=== PATIENT | male | born 1960 | race African-American/Black ===

== ENCOUNTER 2021-03-17 23:24 | Inpatient (IN) | payer MEDICAID ==
[~2021-03-17] VITALS: Ht 170.2 cm; Wt 72.6 kg
[2021-03-17] MEDS ORDERED: NITROGLYCERIN OINT 1GM/INCH UDPKT TD ONE (23:45)
[2021-03-17] MEDS ORDERED: ASPIRIN 81MG TABLET PO ONE (23:45)
[2021-03-18 00:23] LABS: BASOPHILS % 1.1 % (0.0-2.0); EOSINOPHILS % 2.7 % (0.0-5.0); HEMATOCRIT. 40.2 % (42.0-52.0); HEMOGLOBIN. 13.9 g/dL (14.0-18.0); LYMPHOCYTES % 43.7 % (20.0-50.0); MEAN CORPUSCULAR HEMOGLOBIN 29.8 pg (28.0-32.0); MEAN CORPUSCULAR VOLUME 86.2 fL (80.0-94.0); MONOCYTES % 8.6 % (2.0-8.0); NEUTROPHILS % 43.9 % (40.0-76.0); PLATELET 280 x1000/uL (130-400); RED BLOOD CELL COUNT 4.67 mill/uL (4.7-6.1); RED CELL DISTRIBUTION WIDTH 16.7 % (11.6-14.6)
[2021-03-18 00:28] LABS: CHLORIDE 109 mEq/L (98-107)
[2021-03-18] MEDS ORDERED: ENALAPRIL 2.5MG/2ML VIAL 2ML IV ONE (00:30)
[2021-03-18] MEDS ORDERED: ENALAPRIL 1.25MG/ML VIAL 1ML IV NR (00:45)
[2021-03-18] MEDS ORDERED: IOHEXOL-350 100 ML BOTTLE ONE (02:55)
[2021-03-18 11:00] VITALS: BP 174/115
[2021-03-18 12:00] VITALS: BP 174/114
[2021-03-18] MEDS ORDERED: LORAZEPAM 0.5MG TABLET PO PRN (15:30)
[2021-03-18] MEDS ORDERED: ONDANSETRON HCL 4MG/2ML INJ IV PRN (15:30)
[2021-03-18] MEDS ORDERED: HYDROCODONE/ACETAMINOPHEN 5/325MG TABLET PO PRN (15:30)
[2021-03-18] MEDS ORDERED: ACETAMINOPHEN 325MG TABLET PO PRN ×2 (15:30)
[2021-03-18] MEDS ORDERED: DOCUSATE SODIUM 100MG CAPSULE PO PRN (15:30)
[2021-03-18] MEDS ORDERED: IPRATROPIUM/ALBUTEROL 0.5-3(2.5)MG/3ML NEB HHN PRN (15:30)
[2021-03-18 16:00] VITALS: BP 212/123
[2021-03-18] MEDS ORDERED: NALOXONE HCL 0.4MG/ML VIAL IV PRN (16:15)
[2021-03-18] MEDS ORDERED: CARVEDILOL 6.25 MG TABLET PO SCH (17:00)
[2021-03-18] MEDS: CARVEDILOL 6.25 MG TABLET PO SCH (17:24)
[2021-03-18] MEDS: AMLODIPINE 5MG TABLET PO SCH (17:25)
[2021-03-18 18:26] LABS: BASOPHILS % 1.1 % (0.0-2.0); EOSINOPHILS % 1.9 % (0.0-5.0); HEMATOCRIT. 42.5 % (42.0-52.0); LYMPHOCYTES % 27.1 % (20.0-50.0); MEAN CORPUSCULAR HEMOGLOBIN 29.2 pg (28.0-32.0); MEAN PLATELET VOLUME 7.2 fl (7.4-10.4); MONOCYTES % 8.7 % (2.0-8.0); NEUTROPHILS % 61.2 % (40.0-76.0); PLATELET 266 x1000/uL (130-400); RED BLOOD CELL COUNT 4.78 mill/uL (4.7-6.1); RED CELL DISTRIBUTION WIDTH 16.5 % (11.6-14.6)
[2021-03-18 20:00] VITALS: BP 187/129
[2021-03-18 20:13] LABS: HEPATITIS B SURFACE ANTIGEN NEGATIVE
[2021-03-18 20:43] LABS: HEPATITIS A AB IGM NEGATIVE (NEGATIVE)
[2021-03-18] MEDS: CLONIDINE 0.1MG TABLET PO PRN (20:54)
[2021-03-18] MEDS: CHLORDIAZEPOXIDE 5 MG CAPSULE PO SCH (21:44)
[2021-03-19] VITALS: BP 163/109
[2021-03-19 04:00] VITALS: BP 197/108
[2021-03-19] MEDS: CHLORDIAZEPOXIDE 5 MG CAPSULE PO SCH (06:12)
[2021-03-19] MEDS: CLONIDINE 0.1MG TABLET PO PRN ×2 (06:12→09:07)
[2021-03-19 08:00] VITALS: BP 174/113
[2021-03-19] MEDS: CARVEDILOL 6.25 MG TABLET PO SCH (09:06)
[2021-03-19] MEDS: AMLODIPINE 5MG TABLET PO SCH (09:07)
[2021-03-19 12:00] VITALS: BP 129/89
[2021-03-19 13:30] VITALS: BP 132/88
== END 2021-03-19 17:17 | disposition left against medical advice (07) | DRG 190 ==
LOC: ER 23:24 → MICUSO 03-18 04:43 → EDBEDREQTM 03-18 04:45 → EDBEDREQ 03-18 04:45 → 6WST 03-18 08:46
PROVIDERS: ADMIT Internal Medicine; ATTEND Internal Medicine
DX: I21.4 Non-ST elevation (NSTEMI) myocardial infarction (principal); N17.0 Acute kidney failure with tubular necrosis; E87.8 Other disorders of electrolyte and fluid balance, not elsewhere classified; K76.0 Fatty (change of) liver, not elsewhere classified; E88.09 Other disorders of plasma-protein metabolism, not elsewhere classified; I16.1 Hypertensive emergency; F10.239 Alcohol dependence with withdrawal, unspecified; I12.9 Hypertensive chronic kidney disease with stage 1 through stage 4 chronic kidney disease, or unspecified chronic kidney disease; N18.9 Chronic kidney disease, unspecified; Z60.2 Problems related to living alone; R91.8 Other nonspecific abnormal finding of lung field; Z82.49 Family history of ischemic heart disease and other diseases of the circulatory system; Z87.891 Personal history of nicotine dependence; Z79.899 Other long term (current) drug therapy
CPT/HCPCS: 36415; 71045; 71275; 80048; 80053; 80061; 80320; 83036; 83880; 84443; 84484; 85025; 85379; 86705; 86709; 86803; 87340; 87426; 93005; 99291; J2405; J3490; Q9967; G0480

== ENCOUNTER 2022-05-14 14:34 | Emergency (ER) | payer MEDICAID, OTHER ==
[~2022-05-14] VITALS: Ht 177.8 cm; Wt 100.0 kg
[2022-05-14] MEDS ORDERED: SODIUM CHLORIDE 0.9% 1,000 ML IV ONE (15:30)
[2022-05-14] MEDS ORDERED: LORAZEPAM 2MG/ML CPJ IV ONE (15:30)
[2022-05-14 16:25] LABS: BASOPHILS % 0.9 % (0.0-2.0); EOSINOPHILS % 0.6 % (0.0-5.0); HEMATOCRIT. 39.4 % (42.0-52.0); HEMOGLOBIN. 13.3 g/dL (14.0-18.0); LYMPHOCYTES % 11.9 % (20.0-50.0); MEAN CORPUSCULAR HEMOGLOBIN 32.9 pg (28.0-32.0); MEAN CORPUSCULAR VOLUME 97.6 fL (80.0-94.0); MEAN PLATELET VOLUME 7.1 fl (7.4-10.4); MONOCYTES % 4.8 % (2.0-8.0); NEUTROPHILS % 81.8 % (40.0-76.0); PLATELET 411 x1000/uL (130-400); RED BLOOD CELL COUNT 4.04 mill/uL (4.7-6.1); RED CELL DISTRIBUTION WIDTH 15.5 % (11.6-14.6)
[2022-05-14 16:28] LABS: CLARITY URINE CLEAR (CLEAR); COLOR URINE YELLOW (YELLOW); KETONES URINE NEGATIVE (NEGATIVE); LEUKOCYTE ESTERASE URINE NEGATIVE (NEGATIVE); NITRITE URINE NEGATIVE (NEGATIVE); OCCULT BLOOD URINE TRACE (NEGATIVE); PROTEIN URINE 3+ (NEGATIVE); SPECIFIC GRAVITY URINE 1.013 (1.005-1.030); UROBILINOGEN URINE 0.2 E.U./dL (0.2-1.0)
[2022-05-14 16:28] LABS: CHLORIDE 102 mEq/L (98-107)
[2022-05-14 16:37] LABS: ETHANOL BLOOD < 10 mg/dL
[2022-05-14 16:41] LABS: *AMPHETAMINES SCREEN URINE NEGATIVE (NEGATIVE); *BARBITURATES SCREEN URINE NEGATIVE (NEGATIVE); *BENZODIAZEPINES SCREEN URINE NEGATIVE (NEGATIVE); *COCAINE SCREEN URINE NEGATIVE (NEGATIVE); CANNABINOID URINE SCREEN PRESUMTIVE POSITIVE (NEGATIVE); METHADONE URINE SCREEN NEGATIVE (NEGATIVE); OPIATES URINE SCREEN NEGATIVE (NEGATIVE); PHENCYCLIDINE URINE SCREEN NEGATIVE (NEGATIVE)
[2022-05-14] MEDS ORDERED: MAGNESIUM 2 G PREMIX 50 ML IV ONE (17:15)
[2022-05-14] MEDS ORDERED: L25 GT (18:22)
[2022-05-14 18:50] VITALS: BP 202/123
== END 2022-05-14 19:52 | disposition home or self-care (01) ==
LOC: ER 14:34
DX: F10.139 Alcohol abuse with withdrawal, unspecified (principal); I10 Essential (primary) hypertension; R00.0 Tachycardia, unspecified; Z87.891 Personal history of nicotine dependence; Y90.0 Blood alcohol level of less than 20 mg/100 ml
CPT/HCPCS: 36415; 80053; 80305; 80320; 81003; 83690; 83735; 85025; 93005; 96365; 96375; 99284; J2060; J3475; J7030; G0480